=== PATIENT | male | born 1940 | race Caucasian/White ===

== ENCOUNTER 2016-09-26 20:40 | Emergency (ER) | payer OTHER ==
[~2016-09-26] VITALS: Ht 167.6 cm; Wt 77.4 kg
[2016-09-26 20:47] VITALS: Ht 167.6 cm; Wt 77.4 kg
[2016-09-26] MEDS ORDERED: AMOX875T PO (21:42)
[2016-09-26] MEDS ORDERED: DIPHTHERIA/TETANUS/PERTUSSIS 0.5 ML SYR/VIAL IM. ONE (21:45)
--- NOTE | 2016-09-26 21:45 | EMERGENCY ROOM VISIT NOTE ---
ED Visit Note First contact with patient: 21:13 CHIEF COMPLAINT: Dog bites, bilateral hands HISTORY OF PRESENT ILLNESS: This 76-year-old male patient presents to the emergency department proximally 4 hours after they sustained a several small bites to both hands. The patient states he was attempting to break up a dog fight, and was concerned because his small dog was being attacked by 3 much larger dogs. He intervened to rescue his small dog from further injury, and did sustain some superficial bites on bilateral hands. The patient states he washed his hands, however was concerned about his dog so took his dog to the vet immediately after the fight. The patient is uncertain regarding the animal' s vaccination status at this time. He states he is going to find out, though and his that is also working with him to find out who the dogs belonged to. The patient complains of throbbing pain which he rates 5/10 at the site of the injury. Pain is worse with movement. Tetanus status is not up to date. REVIEW OF SYSTEMS: A 6 system review of systems was completed with positives and pertinent negatives listed in the HPI. ALLERGIES: Sulfa MEDICATIONS: Digoxin, lisinopril, simvastatin, aspirin, metformin, Lasix PMH: History of bypass surgery, diabetes, hypertension PHYSICAL EXAM: Vital Signs reviewed, see Nurse's notes, vital signs stable. GENERAL: 76-year-old male, awake, alert, well appearing, no acute distress. Non toxic in appearance. MUSCULOSKELETAL: Examination of both hands reveals several puncture wounds, one of which is more in the form of a laceration. These wounds are over the left thumb, posterior medial aspect of the left hand, and on the posterior aspect of the right fourth digit, next to the fingernail. There is minimal swelling on inspection. Palpation of the hands and fingers reveals minimal tenderness. No significant crepitus or warmth noted. No joint space, tendon, or vascular involvement. Distal pulses intact. SKIN: No signs of infection. NEURO: No sensory or motor deficits noted over all dermatomes and myotomes tested. EMERGENCY DEPARTMENT COURSE AND DECISION MAKING: I examined the patient. The patient presented with several small isolated bite wounds as described as above. By the history, there is minimal concern for rabies exposure, however I did discuss with the patient that there remains a risk, and they do suggest he return to the emergency department if he finds out the dogs have not been vaccinated. No signs of infection on examination. ER Treatment: Department of Health paperwork completed. Tetanus booster was given. Antibiotic prophylaxis is indicated. The area was cleansed with Betadine and sterile saline and dressed with bacitracin and a bandage. The patient was seen and evaluated by Dr. Lisa. Please see his dictation. Discharge instructions reviewed. Discharged in stable condition. DIFFERENTIAL DIAGNOSIS: Rabies exposure, cellulitis, puncture wounds, laceration , tendon involvement, and others. DIAGNOSIS: Dog bite DISCHARGED INSTRUCTIONS: Proper wound care is essential for adequate wound healing and infection prevention. You can shower and clean the wound with soap and water. Do not scour over the wound, pat dry with a towel. Do not submerse the wound (i.e. bathe or dish wash) until the wound has fully healed. You can use an antibiotic ointment with a dressing over the wound for the next 3-4 days. After this time you may leave the wound dry and open to the air. You were prescribed Augmentin to be taken twice daily. This is an antibiotic. All antibiotics have the potential to cause diarrhea. Stop this medication and contact a medical provider if you were to develop any significant adverse side effects including: wheezing, shortness of breath, passing out, vomiting, or a diffuse rash. Always take antibiotics as directed and COMPLETE the ENTIRE course regardless of the improvement of your symptoms. If you decide to have rabies prophylaxis completed, return to the emergency department. I would encourage you to have these vaccinations if you find out that the dogs were unvaccinated. Return to the emergency department if he experienced increased swelling, redness , pus, fever, chills, body aches, nausea, vomiting, other associated symptoms of infection. Current/Historical Medications Scheduled Amoxicillin & Pot Clavulanate (Augmentin 875-125 mg), 1 TAB PO BID Vital Signs Date Time Temp Pulse Resp B/P (MAP) Pulse Ox O2 Delivery O2 Flow Rate FiO2 09/26/16 22:14 36.6 66 18 151/81 97 09/26/16 22:13 66 18 151/81 97 Room Air 09/26/16 20:47 36.6 69 18 165/82 97 Room Air Medications Administered Medications (Trade) Dose Ordered Sig/Diana Route Start Time Stop Time Status Last Admin Dose Admin Diphtheria/ Pertussis/Tetanus Vacc (Adacel Inj) 0.5 ml ONCE ONCE IM. 09/26/16 21:45 09/26/16 21:46 DC 09/26/16 22:03 0.5 ML Amoxicillin/ Clavulanate Potassium (Augmentin 875MG Home Pack) 1 homepack UD ONCE PO 09/26/16 22:15 09/26/16 22:16 DC 09/26/16 22:06 1 HOMEPACK Departure Information Impression Primary Impression: Dog bite Additional Impression: Hand laceration Dispostion Home / Self-Care Condition GOOD Prescriptions Amoxicillin & Pot Clavulanate (Augmentin 875-125 mg) 1 Tab Tab 1 TAB PO BID for 9 Days, #18 TAB Prov: Pat Gross PA-C 09/26/16 Referrals No Doctor, Assigned (PCP) Patient Instructions ED Bite Kwabena, Kaylen [facility] Additional Instructions Proper wound care is essential for adequate wound healing and infection prevention. You can shower and clean the wound with soap and water. Do not scour over the wound, pat dry with a towel. Do not submerse the wound (i.e. bathe or dish wash) until the wound has fully healed. You can use an antibiotic ointment with a dressing over the wound for the next 3-4 days. After this time you may leave the wound dry and open to the air. You were prescribed Augmentin to be taken twice daily. This is an antibiotic. All antibiotics have the potential to cause diarrhea. Stop this medication and contact a medical provider if you were to develop any significant adverse side effects including: wheezing, shortness of breath, passing out, vomiting, or a diffuse rash. Always take antibiotics as directed and COMPLETE the ENTIRE course regardless of the improvement of your symptoms. If you decide to have rabies prophylaxis completed, return to the emergency department. I would encourage you to have these vaccinations if you find out that the dogs were unvaccinated. Return to the emergency department if he experienced increased swelling, redness , pus, fever, chills, body aches, nausea, vomiting, other associated symptoms of infection. Problem Qualifiers Primary Impression: Dog bite Encounter type: initial encounter Qualified Codes: W54.0XXA - Bitten by dog , initial encounter Additional Impression: Hand laceration Encounter type: initial encounter Foreign body presence: without foreign body Laterality: unspecified laterality Qualified Codes: S61.419A - Laceration without foreign body of unspecified hand, initial encounter
--- NOTE | 2016-09-26 22:03 | EMERGENCY ROOM VISIT NOTE ---
ED Visit Note First contact with patient: 21:13 I did evaluate and examine this patient myself. I did guide management for the patient. I agree with the APC's assessment as discussed. Please see the APC's dictation for further details. The patient was trying to break up a dogfight and the other dog bit his left hand briefly. He did not clamp down. He has no sensory or motor deficits. His wounds will be left open to avoid infection and he will be discharged with Augmentin.
[2016-09-26 22:14] VITALS: BP 151/81; PULSE 66; TEMP 36.6; O2SAT 97
[2016-09-26] MEDS ORDERED: AMOXICIL/CLAVU 875MG HOME PACK PO ONE (22:15)
[2016-09-27] MEDS ORDERED: AMOXICILLIN/CLAVULANATE TAB 875 MG TAB PO SCH (09:00)
== END 2016-09-26 22:15 | disposition home or self-care (01) ==
LOC: C.EDB 20:43 → C.EDD 22:15
DX: S61.452A Open bite of left hand, initial encounter (principal); S61.451A Open bite of right hand, initial encounter; W54.0XXA Bitten by dog, initial encounter; Z98.84 Bariatric surgery status; E11.9 Type 2 diabetes mellitus without complications; I10 Essential (primary) hypertension; Z79.82 Long term (current) use of aspirin; Z79.899 Other long term (current) drug therapy